=== PATIENT | male | born 1990 | race Caucasian/White ===

== ENCOUNTER 2018-08-13 13:28 | Emergency (ER) | payer OTHER, MEDICAID ==
[2018-08-13] MEDS: HYDROCODONE/APAP (5/325) TAB PO (14:24)
[2018-08-13] MEDS: LIDOCAINE 1% (MDV) 10 ML INJ INJ ×2 (14:26→14:27)
[2018-08-13] MEDS: LIDOCAINE 1% (MPF) 5 ML VIAL INJ ×2 (14:27→14:28)
[2018-08-13] MEDS ORDERED: CLINDAMYCIN 300 MG CAP PO (15:00)
[2018-08-13] MEDS: CLINDAMYCIN 150 MG CAP PO (15:57)
[2018-08-13] MEDS: CLINDAMYCIN 300 MG CAP PO (15:57)
== END 2018-08-13 18:04 | disposition home or self-care (01) ==
LOC: FTE 13:28
DX: S60.456A Superficial foreign body of right little finger, initial encounter (principal); I10 Essential (primary) hypertension; X58.XXXA Exposure to other specified factors, initial encounter; Y92.89 Other specified places as the place of occurrence of the external cause; Z87.891 Personal history of nicotine dependence
CPT/HCPCS: 73140; 76882-RT; 99284-25